=== PATIENT | male | born 1960 | race Two or more races ===

== ENCOUNTER 2024-11-03 14:32 | Emergency (ER) | payer OTHER ==
[~2024-11-03] VITALS: Ht 175.3 cm; Wt 89.0 kg
[2024-11-03 14:33] VITALS: TEMP 97.6; O2SAT 97
[2024-11-03 15:53] VITALS: BP 118/81; PULSE 91; RESP 16; O2SAT 99
== END 2024-11-03 15:53 | disposition home or self-care (01) ==
LOC: ER 14:32
DX: I95.2 Hypotension due to drugs (principal); R55 Syncope and collapse; E78.00 Pure hypercholesterolemia, unspecified; I10 Essential (primary) hypertension; T50.905A Adverse effect of unspecified drugs, medicaments and biological substances, initial encounter; F10.20 Alcohol dependence, uncomplicated; X58.XXXA Exposure to other specified factors, initial encounter
CPT/HCPCS: 99283